=== PATIENT | male | born 1985 | race Hispanic/Latino ===

== ENCOUNTER 2016-12-26 08:04 | Emergency (ER) | payer SELFPAY ==
--- NOTE | 2016-12-26 10:57 | RAD ---
CHEST 2 VIEWS: \E\Date: 12/26/16 HISTORY: Chest injury. FINDINGS: Cardiac silhouette and pulmonary vasculature are unremarkable. Mediastinum is midline. There is no c onfluent air space consolidation, pneumothorax, or pleural fluid evident. IMPRESSION: No active cardiopulmonary abnormalities are demonstrated. POS: [facility]
--- NOTE | 2016-12-26 11:17 | RAD ---
RIGHT ELBOW 4 VIEWS: Date: 12/26/16 HISTORY: Trauma. Right elbow pain. FINDINGS/IMPRESSION: No acute fracture or dislocation seen. POS: [facility]
--- NOTE | 2016-12-26 11:24 | RAD ---
LUMBAR SPINE 2 VIEWS: Date: 12/26/16 HISTORY: Trauma, low back pain. FINDINGS/IMPRESSION: No acute fracture or subluxation is identified. POS: [facility]
--- NOTE | 2016-12-26 11:25 | RAD ---
SACRUM AND COCCYX 3 VIEWS: Date: 12/26/16 HISTORY: Trauma. Low back pain. FINDINGS/IMPRESSION: No fracture or dislocation is identified. POS: [facility]
== END 2016-12-26 10:10 | disposition home or self-care (01) ==
LOC: MADERS 08:04
DX: S53.401A Unspecified sprain of right elbow, initial encounter (principal); S30.0XXA Contusion of lower back and pelvis, initial encounter; V49.9XXA Car occupant (driver) (passenger) injured in unspecified traffic accident, initial encounter
CPT/HCPCS: 71020; 72100; 72220